=== PATIENT | female | born 1990 | race Hispanic/Latino ===

== ENCOUNTER 2019-10-27 23:32 | Day surgery (SDC) | payer SELFPAY ==
[2019-10-28] MEDS ORDERED: hydrALAZINE 20 MG/ML VIAL SLOW IVP PRN (00:41)
--- NOTE | 2019-10-28 00:47 | PDOC.FPROB ---
FMR OB H&P: HPI - History of Present Illness Chief Complaint: Decreased movement History of Present Illness: Pt is a 29 yo F at 37.4 wks by LMP c/w 8.5 wk US who presents for decreased movement. She says she has been feeling baby less since Wednesday of this week. She feels baby move in the mornings and evening, but little throughout the day. She says baby did not move at all tonight and so she got concerned and came in to be checked. She denies any LOF, contractions, bleeding , or vaginal discharge. She was seen for an US where the they found her to have a normal NST. She was told to come to the hospital if she felt like she had continued decrease in movement. Primary Care Physician: SHADNRA Ann FMR OB H&P: Current - Care : 3 Para: 2001 Gestational age: 37.4 Due date: 11/14/2019 Dating Criteria: LMP c/w with 8.5 wk US Course/Complications: Gestational Diabetes - OB Labs Blood type: O RH: positive Antibody Screen: negative HIV: negative RPR: negative HepBsAg: negative Rubella: immune Quad screen: negative Gonorrhea: negative Chlamydia: negative 3 hour GTT: 111, 211, 170 A1c: 5.3 H&H: 11.9/34.5 Platelets: 223 FMR OB H&P: History - Past Medical History PMH: Hypothyroidism - OB History OB History: Gestational Diabetes treated with metformin. Hx of gestational hypertension in previous . 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 - Family History Family History: Cousin with autism FMR OB H&P: Medications - Current Home Medications: Medication Instructions Recorded Confirmed Type Vitamin 1 tablet PO DAILY 01/07/15 01/27/15 History Levothyroxine Sodium [Synthroid] 1 tab PO DAILY 10/28/19 10/28/19 History metFORMIN [Glucophage] 2 tab PO DAILY 10/28/19 10/28/19 History Allergies/Adverse Reactions: Allergies Allergy/AdvReac Type Severity Reaction Status Date / Time No Known Allergies Allergy Verified 01/07/15 22:32 FMR OB H&P: ROS - Review of Systems General: denies: fever/chills Eyes: denies: vision changes ENT: denies: nasal congestion, rhinorrhea, sore throat Cardiovascular: denies: chest pain, palpitation, edema Respiratory: denies: cough, congestion, shortness of breath Gastrointestinal: reports: nausea. denies: abdominal pain, cramping, vomiting, diarrhea Genitourinary (Female): denies: dysuria, vaginal discharge, vaginal bleeding, contractions Musculoskeletal: denies: pain, tenderness, swelling Neurologic: reports: other (Dizziness that resolved spontaneously). denies: numbness, weakness Integumentary: denies: itching, rash, lesions Hematologic/Lymphatic: denies: prolonged or excessive bleeding, enlarged lymph nodes FMR OB H&P: Vital Signs - Maternal Vital signs: BP: 119/64, HR: 80, O2: 99% on RA, T: - Heart Tones Variability: moderate Acceleration: present Deceleration: absent Category: category 1 FMR OB H&P: Physical Exam - Physical Exam General: NAD HEENT: normocephalic and atraumatic, PERRLA, EOMI, MMM, conjunctiva clear, no scleral icterus, normal nasal mucosa, oropharynx clear Neck: supple, trachea midline, no LAD Heart: RRR, normal S1/S2, no murmurs/rubs/gallops, pulses present, no edema General: CTAB, no respiratory distress, good air movement, no rales/rhonchi, no wheezing, no retractions Abdomen: soft, gravid, non-tender, bowel sound present Musculoskeletal: normal gait and station, pulses present, FROM in all four extremities Neurological: cranial nerves II through XII intact, no focal deficit Skin: no rash, good tugor Lymphatic: no unusual bruising or bleeding, no purpura, no petechia, no LAD Psychiatric: normal mood and affect FMR OB H&P: A/P - Problem List (1) Term Status: Acute Code(s): Z34.90 - ENCNTR FOR SUPRVSN OF NORMAL , UNSP, UNSP TRIMESTER (2) Decreased movement Status: Acute Code(s): O36.8190 - DECREASED MOVEMENTS, UNSP TRIMESTER, UNSP Disposition: Pt is a 29 yo F at 37.4 wks by LMP c/w 8.5 wk US who presents for decreased movement. 1. Decreased Movement Pt was evaluated on NST and was found to be reactive * Discussed with patient return precautions and if she has concerns to return to the hospital for evaluation. 2. Term 37.4 wks * Hx of gestational HTN with past and took medication for a year after * BP well controlled here * Hypothyroidism on levothyroxine that is well controlled throughout * A2GDM currently on metformin * GBS collected but not in records Dispo: Discharged home. Discussed return precautions. Recommend following up at [facility] at scheduled visit on of next week. Discussion: Date/Time: 10/28/19 0043 This H&P was discussed with [] and [] who agree with the above documentation and plan. Addendum - Attending - Attending Attestation Date/Time: 10/28/19 3889 I personally evaluated the patient and discussed the management with Dr. Castaneda. I agree with the History, Examination, Assessment and Plan documented above.
== END 2019-10-28 00:40 | disposition home or self-care (01) ==
LOC: L&D/OP 23:32
PROVIDERS: ATTEND Family Medicine
DX: O36.8130 Decreased fetal movements, third trimester, not applicable or unspecified (principal); O24.415 Gestational diabetes mellitus in pregnancy, controlled by oral hypoglycemic drugs; O99.283 Endocrine, nutritional and metabolic diseases complicating pregnancy, third trimester; E03.9 Hypothyroidism, unspecified; Z3A.37 37 weeks gestation of pregnancy; Z79.899 Other long term (current) drug therapy

== ENCOUNTER 2019-11-08 18:00 | Inpatient (IN) | payer MEDICAID, OTHER, SELFPAY ==
[2019-11-08] MEDS: Lactated Ringer's 1,000 ML IV SCH (19:30)
[2019-11-08] MEDS ORDERED: Misoprostol 200 MCG TAB PR PRN (19:36)
[2019-11-08] MEDS ORDERED: HYDROcodone/Acetaminophen 5/325 mg Tablet PO PRN ×2 (19:36)
[2019-11-08] MEDS ORDERED: Methylergonovine 0.2 MG/ML VIAL IM PRN (19:36)
[2019-11-08] MEDS ORDERED: Promethazine HCl 25 MG/ML VIAL IM PRN (19:36)
[2019-11-08] MEDS ORDERED: Ibuprofen 800 MG TAB PO PRN (19:36)
[2019-11-08] MEDS ORDERED: Acetaminophen 500 MG TAB PO PRN (19:36)
[2019-11-08] MEDS ORDERED: hydrALAZINE 20 MG/ML VIAL SLOW IVP PRN (19:36)
[2019-11-08] MEDS ORDERED: NS / Oxytocin 40 units/1000ml 1,000 ML IV PRN (19:36)
[2019-11-08] MEDS ORDERED: Carboprost 250 MCG/ML AMP IM PRN (19:36)
[2019-11-08] MEDS ORDERED: Lidocaine 1% (PF) 30 ML VIAL SC PRN (19:36)
[2019-11-08] MEDS ORDERED: Ondansetron PF 4 MG/2 ML Vial IVP PRN (19:36)
[2019-11-08 20:28] VITALS: BMI 46.1
--- NOTE | 2019-11-08 20:32 | PDOC.FPROB ---
FMR OB H&P: HPI - History of Present Illness Chief Complaint: IOL Indentification: History of Present Illness: Patient is a 29 y/o female at 39.1W EGA by LMP, c/w 9.2W US, who presents to L&D for induction of labor. Patient reports no problems at this time other that some mild nausea and back pain, and states that her has only been complicated by 1 episode of UTI and 1 episode of vaginal candidiasis. Records were reviewed from [facility], which demonstrated that patient has had adequate care and appropriate supervision of Hypothyroidism and A2GDM. Patient states that she checks her POC Glucose regularly at home, and upon review her POC Glucose readings were found to range from the high 90s to the low 110s. Patient denies any CTX, loss of fluid, vaginal bleeding, loss of movements , fevers, chills, headaches, visual disturbances, auditory disturbances, vomiting, CP, peripheral edema, SOB, cough, RUQ pain, dysuria, hematuria, bloody stools, arthralgias/arthritis, or recent falls/trauma. Patient denies sick contacts and recent travel. Patient's was present in the room at the time of evaluation. Primary Care Physician: [facility] - Dr. Kaitlin Ann / Dr. 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 - Surgical History Sx History: None. - Social History Social History: Denies x3. Patient is unemployed at this time. - Family History Family History: Non-contributory. FMR OB H&P: Medications - Current Home Medications: Medication Instructions Recorded Confirmed Type Vitamin 1 tablet PO DAILY 01/07/15 11/08/19 History Levothyroxine Sodium [Synthroid] 1 tab PO DAILY 10/28/19 11/08/19 History metFORMIN [Glucophage] 2 tab PO DAILY 10/28/19 11/08/19 History Allergies/Adverse Reactions: Allergies Allergy/AdvReac Type Severity Reaction Status Date / Time No Known Allergies Allergy Verified 01/07/15 22:32 FMR OB H&P: ROS - Review of Systems General: reports: fatigue. denies: fever/chills, recent trauma Eyes: denies: vision changes ENT: denies: sore throat Cardiovascular: denies: chest pain, edema Respiratory: denies: cough, shortness of breath Gastrointestinal: reports: nausea. denies: abdominal pain, vomiting, diarrhea, constipation, bright red blood, dark black tarry stools Genitourinary (Female): reports: vaginal discharge. denies: dysuria, hematuria , vaginal pain, vaginal bleeding, contractions Musculoskeletal: denies: arthritis/arthralgias Neurologic: denies: headache FMR OB H&P: Vital Signs - Maternal Vital signs: HR (85), BP (126/74), T(98.5), 02Sat(98% - Room Air) - Heart Tones Baseline: 140 Variability: moderate Acceleration: present Deceleration: variable (x1) FMR OB H&P: Physical Exam - Physical Exam General: NAD, awake, alert and oriented HEENT: normocephalic and atraumatic, PERRLA, EOMI, conjunctiva clear, no scleral icterus, grossly normal vision, grossly normal hearing Neck: supple, FROM, trachea midline, no LAD Chest: non-tender to palpation, no lesions Breast: symmetric Heart: RRR, normal S1/S2, no murmurs/rubs/gallops, pulses present, no edema General: CTAB, no respiratory distress, good air movement, no rales/rhonchi, no wheezing, no retractions Abdomen: fundus(cm), non-tender Musculoskeletal: pulses present, FROM in all four extremities, no misalignment/ asymmetry, no atrophy Neurological: sensation to pain,touch and proprioception grossly normal Skin: no rash, good tugor, no jaundice Lymphatic: no unusual bruising or bleeding, no purpura, no petechia, no LAD Psychiatric: intact recent and remote memory, good judgement and insight, normal mood and affect - Pelvic Exam Vulva: no masses, no lesions Cervix: no masses, no blood SVE: 2.5 / 50 / High Rosas score: 5 Membranes: Intact Presentation: Vertex FMR OB H&P: A/P - Problem List (1) Gestational diabetes Current Visit: Yes Status: Acute Code(s): O24.419 - GESTATIONAL DIABETES MELLITUS IN , UNSP CONTROL (2) Hypothyroidism Current Visit: Yes Status: Acute Code(s): E03.9 - HYPOTHYROIDISM, UNSPECIFIED (3) Obesity Current Visit: Yes Status: Acute Code(s): E66.9 - OBESITY, UNSPECIFIED (4) Term Current Visit: No Status: Acute Code(s): Z34.90 - ENCNTR FOR SUPRVSN OF NORMAL , UNSP, UNSP TRIMESTER Disposition: Patient is a 29 y/o female at 39.1W EGA by LMP, c/w 1st Trimester US, who presents to L&D for IOL. 1. SIUP -Patient does not endorse loss of fluids, vaginal bleeding, CTX or loss of movement at this time - complicated by 1 UTI and 1 episodes of Vaginal Candiasis - no complaints at this time -GBS: Negative -HIV / RPR / GC / CT: Negative -Maternal VSS w/ unremarkable physical exam -FHTs in the 140s w/ Acels present, 1 Variable Decel noted during intake - will continue to monitor -SVE(2014): 2.5 / 50 / High -Rosas Score: 5 -Will plan for Cytotec Induction w/ Q4H SVEs -LR @ 125 ml/hr -No epidural desired - ensure adequate pain control 2. A2GDM -HgA1c: 5.3 -POC Glucose appears to be WNL w/ home readings -Will hold Metformin 500 mg PO BID at this time -Q2H Accuchecks -Hypoglycemia Protocol 3. Hypothyroidism -Adequate monitoring throughout -TSH: 4.0 > 2.3 > 1.72 > 3.18 -Patient does not endorse symptoms consistent w/ Hypo- / Hyperthyroidism -Will continue home Levothyroxine regimen 4. Obesity -Most recent US (34.3W) reviewed prior to admission -HADLOCK: 78% -EFW: 2456 g -Low concern for Macrosomia at this time PCP: [facility] - Dr. Ann / Dr. Moody Dispo: Patient is currently stable and admitted to L&D for IOL at 39.1W EGA. Plan for Cytotec Induction w/ Q4H SVEs. Monitor Q2H Accuchecks and ensure adequate pain control. Expected LOS > 48H. Discussion: Date/Time: 11/08/192027 This H&P was discussed with [] and [] who agree with the above documentation and plan. Addendum - Attending - Attending Attestation Date/Time: 11/09/191843 I personally evaluated the patient and discussed the management with Dr. Pugh at time of admission. I agree with the History, Examination, Assessment and Plan documented above with any addition or exceptions noted below.
[2019-11-08] MEDS ORDERED: Misoprostol 100 MCG TAB VAG PRN (21:00)
[2019-11-08 21:29] LABS: Hemoglobin 13.7 g/dL (12.0-16.0); Mean Corpuscular HGB CONC 34.7 g/dL (32.0-36.0); Mean Corpuscular Hemoglobin 32.8 pg (27.0-31.0); Mean Corpuscular Volume 94.6 fL (78.0-98.0); Mean Platelet Volume 9.1 fL (7.4-10.4); Platelet Count 236 thou/uL (130-400); RBC Distribution Width 12.7 % (11.5-14.5); Red Blood Cell (RBC) Count 4.18 mill/uL (4.20-5.40); White Blood Cell (WBC) Count 8.9 thou/uL (4.8-10.8)
[2019-11-08 22:06] LABS: Syphilis Antibody Nonreactive (Nonreactive)
[2019-11-08 22:26] LABS: HBSAg Index 0.14 S/CO (0-0.99); Hep B Surf Ag Non-Reactive S/CO (NonReactive)
[2019-11-09] MEDS: Lactated Ringer's 1,000 ML IV SCH ×2 (01:06→08:45)
--- NOTE | 2019-11-09 04:00 | PDOC.OBLPN ---
FMR OB Labor PN: Subj - Interval History Hospital Day: 1 Chief Complaint: IOL Indentification: @ 39.2W EGA by LMP, c/w 1st Trimester US Interval History: None FMR OB Labor PN: Obj - Maternal Vital signs: BP: [129/63] HR: [63] RR: [] Tmax: [] Pox: []% on [] Wt: [] FMR OB Labor PN: Exam - Physical Exam General: NAD, awake, alert and oriented HEENT: normocephalic and atraumatic, EOMI, MMM, conjunctiva clear, no scleral icterus, grossly normal vision, grossly normal hearing Neck: supple, FROM Breast: symmetric Abdomen: gravid, non-tender Musculoskeletal: FROM in all four extremities, no misalignment/asymmetry, no atrophy Neurological: sensation to pain,touch and proprioception grossly normal Skin: no rash, no jaundice Lymphatic: no unusual bruising or bleeding, no purpura, no petechia Psychiatric: intact recent and remote memory, good judgement and insight, normal mood and affect - Pelvic Exam SVE: 3/50/-3 Rosas score: 5 Membranes: Intact Presentation: Vertex FMR OB Labor PN: Data - Labs Lab results: Laboratory Results - last 24 hr 11/08/19 11/08/19 11/08/19 20:54 21:09 21:09 WBC RBC Hgb Hct MCV MCH MCHC RDW Plt Count MPV POC Glucose 96 Syphilis IgG/IgM Ab Nonreactive Hep Bs Antigen Non-Reactive Blood Type Antibody Screen 11/08/19 11/08/19 11/09/19 21:09 21:09 00:17 WBC 8.9 RBC 4.18 L Hgb 13.7 Hct 39.6 MCV 94.6 MCH 32.8 H MCHC 34.7 RDW 12.7 Plt Count 236 MPV 9.1 POC Glucose 84 Syphilis IgG/IgM Ab Hep Bs Antigen Blood Type O POSITIVE Antibody Screen NEGATIVE FMR OB Labor PN: A/P - Problem List (1) Gestational diabetes Current Visit: Yes Status: Acute Code(s): O24.419 - GESTATIONAL DIABETES MELLITUS IN , UNSP CONTROL (2) Hypothyroidism Current Visit: Yes Status: Acute Code(s): E03.9 - HYPOTHYROIDISM, UNSPECIFIED (3) Obesity Current Visit: Yes Status: Acute Code(s): E66.9 - OBESITY, UNSPECIFIED (4) Term Current Visit: No Status: Acute Code(s): Z34.90 - ENCNTR FOR SUPRVSN OF NORMAL , UNSP, UNSP TRIMESTER Disposition: Patient is a 29 y/o female at 39.1W EGA by LMP, c/w 1st Trimester US, who presents to L&D for IOL. 0115 SVE 1. SIUP -Patient does not endorse loss of fluids, vaginal bleeding, CTX or loss of movement at this time - complicated by 1 UTI and 1 episodes of Vaginal Candiasis - no complaints at this time -GBS: Negative -HIV / RPR / GC / CT: Negative -Maternal VSS w/ unremarkable physical exam -FHTs in the 140s w/ Acels present, 1 Variable Decel noted during intake - will continue to monitor -SVE(2014): 2.5 / 50 / High -Cytotec #1 placed at 2114 -SVE(114): 3 / 50 / -3 -Rosas Score: 5 -Will repeat SVE in 2H to assess for Cytotec # Placement -LR @ 125 ml/hr -No epidural desired - ensure adequate pain control 2. A2GDM -HgA1c: 5.3 -POC Glucose appears to be WNL w/ home readings -Will hold Metformin 500 mg PO BID at this time -Q2H Accuchecks - all values WNL since admission -Hypoglycemia Protocol 3. Hypothyroidism -Adequate monitoring throughout -TSH: 4.0 > 2.3 > 1.72 > 3.18 -Patient does not endorse symptoms consistent w/ Hypo- / Hyperthyroidism -Will continue home Levothyroxine regimen 4. Obesity -Most recent US (34.3W) reviewed prior to admission -HADLOCK: 78% -EFW: 2456 g -Low concern for Macrosomia at this time PCP: [facility] - Dr. Ann / Dr. Moody Dispo: Patient is currently stable and admitted to L&D for IOL at 39.1W EGA. Continue with Cytotec IOL and plan for additional SVE in 2H. Monitor Q2H Accuchecks and ensure adequate pain control as per above. Expected LOS > 48H. Discussion: Date/Time: 11/09/19 3534 This H&P was discussed with [] and [] who agree with the above documentation and plan.
[2019-11-09] MEDS ORDERED: Butorphanol Tartrate 1 MG/ML VIAL SLOW IVP PRN (04:24)
--- NOTE | 2019-11-09 04:37 | PDOC.OBLPN ---
FMR OB Labor PN: Subj - Interval History Hospital Day: 1 Chief Complaint: IOL Indentification: @ 39.2W EGA by LMP, c/w 1st Trimester US Interval History: Increasingly painful CTX FMR OB Labor PN: Obj - Maternal Vital signs: BP: [123/72] HR: [63] RR: [] Tmax: [] Pox: []% on [] Wt: [] FMR OB Labor PN: Exam - Physical Exam General: NAD, awake, alert and oriented, other (Increasingly painful CTX) HEENT: normocephalic and atraumatic, EOMI, MMM, conjunctiva clear, no scleral icterus, grossly normal vision, grossly normal hearing Neck: supple, FROM Breast: symmetric Heart: no edema General: no respiratory distress Abdomen: gravid, non-tender Musculoskeletal: FROM in all four extremities, no misalignment/asymmetry, no atrophy Neurological: sensation to pain,touch and proprioception grossly normal Skin: no rash, no jaundice Lymphatic: no unusual bruising or bleeding, no purpura, no petechia Psychiatric: intact recent and remote memory, good judgement and insight, normal mood and affect - Pelvic Exam Cervix: no masses, no blood SVE: 4/50/-2 Rosas score: 7 Membranes: Intact Presentation: Vertex FMR OB Labor PN: Data - Labs Lab results: Laboratory Results - last 24 hr 11/08/19 11/08/19 11/08/19 20:54 21:09 21:09 WBC RBC Hgb Hct MCV MCH MCHC RDW Plt Count MPV POC Glucose 96 Syphilis IgG/IgM Ab Nonreactive Hep Bs Antigen Non-Reactive Blood Type Antibody Screen 11/08/19 11/08/19 11/09/19 21:09 21:09 00:17 WBC 8.9 RBC 4.18 L Hgb 13.7 Hct 39.6 MCV 94.6 MCH 32.8 H MCHC 34.7 RDW 12.7 Plt Count 236 MPV 9.1 POC Glucose 84 Syphilis IgG/IgM Ab Hep Bs Antigen Blood Type O POSITIVE Antibody Screen NEGATIVE 11/09/19 04:11 WBC RBC Hgb Hct MCV MCH MCHC RDW Plt Count MPV POC Glucose 81 Syphilis IgG/IgM Ab Hep Bs Antigen Blood Type Antibody Screen FMR OB Labor PN: A/P - Problem List (1) Gestational diabetes Current Visit: Yes Status: Acute Code(s): O24.419 - GESTATIONAL DIABETES MELLITUS IN , UNSP CONTROL (2) Hypothyroidism Current Visit: Yes Status: Acute Code(s): E03.9 - HYPOTHYROIDISM, UNSPECIFIED (3) Obesity Current Visit: Yes Status: Acute Code(s): E66.9 - OBESITY, UNSPECIFIED (4) Term Current Visit: No Status: Acute Code(s): Z34.90 - ENCNTR FOR SUPRVSN OF NORMAL , UNSP, UNSP TRIMESTER Disposition: Patient is a 29 y/o female at 39.2W EGA by LMP, c/w 1st Trimester US, who presents to L&D for IOL. 0345 SVE 1. SIUP -Patient does not endorse loss of fluids, vaginal bleeding, CTX or loss of movement at this time - complicated by 1 UTI and 1 episodes of Vaginal Candiasis - no complaints at this time -GBS: Negative -HIV / RPR / GC / CT: Negative -Maternal VSS w/ unremarkable physical exam -FHTs in the 130s w/ Acels present, 1 Variable Decel noted during intake - will continue to monitor -SVE(2014): 2.5 / 50 / High -Cytotec #1 placed at 2115 -SVE(0115): 3 / 50 / -3 -SVE(034): 4/ 50 / -2 -Rosas Score: 7 -Will repeat SVE in 4H to assess for Cytotec #2 Placement -LR @ 125 ml/hr -No epidural desired - will administer Stadol 2 mg IVP x1 at this time 2. A2GDM -HgA1c: 5.3 -POC Glucose appears to be WNL w/ home readings -Will hold Metformin 500 mg PO BID at this time -Q2H Accuchecks - all values WNL since admission -Hypoglycemia Protocol 3. Hypothyroidism -Adequate monitoring throughout -TSH: 4.0 > 2.3 > 1.72 > 3.18 -Patient does not endorse symptoms consistent w/ Hypo- / Hyperthyroidism -Will continue home Levothyroxine regimen 4. Obesity -Most recent US (34.3W) reviewed prior to admission -HADLOCK: 78% -EFW: 2456 g -Low concern for Macrosomia at this time PCP: [facility] - Dr. Ann / Dr. Moody Dispo: Patient is currently stable and admitted to L&D for IOL at 39.1W EGA. Continue with Cytotec IOL and plan for next SVE in 4H. Monitor Q2H Accuchecks and ensure adequate pain control as per above. Expected LOS > 48H. Discussion: Date/Time: 11/09/19 0436 This H&P was discussed with [] and [] who agree with the above documentation and plan.
[2019-11-09] MEDS ORDERED: Lidocaine 1% (PF) 30 ML VIAL ONE (07:20)
--- NOTE | 2019-11-09 09:57 | PDOC.OPDEL ---
OB Operative/Delivery Note - Additional Findings/Plan Compilations/Other Findings: Vaginal Delivery Dictation Guideline Delivering Physician: Dr. Kaitlin Ann, Dr. Anel Burton Attending: Dr. Cullen Mendieta Procedure: Spontaneous Vaginal Delivery Anesthesia: epidural, Local for Repair EBL: 175ml ml Pre-op Diagnosis: 1. Medical induction of term intrauterine for A2GDM 2. A2GDM on metformin 3. Hx of Hypothyroidism Post-op Diagnosis: 1. Term intrauterine , delivered 2. same as above Indications: A 29y/o female presents to L&D for induction due to A2GDM Delivery Note: This is 29yo F @ 39.2wks who delivered a viable M infant at 0859. Following an uneventful intrapartum course, that included q2h accuchecks all wnl, and AROM with scalp electrode placement ~30min prior to delivery, a vigorous male was delivered over an intact perineum in the occipitoanterior position. Anterior Shoulder and then remainder of the body delivered. Nuchal cord x 1. The head was held down and mouth and nares were bulb suctioned. Cord clamped and cut and cord blood collected. Placenta delivered intact in the Sy presentation with a 3 vessel cord noted. Fundal massage was performed and the fundus was firm. The cervix and vagina were inspected and a 1st degree laceration noted and repaired with 3-0 vicryl in the usual fashion with good approximation and hemostasis after 10ml lidocaine was injected at site. Infant went to nursery in good condition for routine care. Apgars were 8/9 at 1 & 5 minutes, respectively. Patient tolerated delivery well and went to after routine recovery/care. Addendum - Attending - Attending Attestation Date/Time: 11/09/19 1027 I was present for the delivery.
[2019-11-09] MEDS: NS / Oxytocin 40 units/1000ml 1,000 ML ONE (10:18)
[2019-11-09] MEDS ORDERED: NS / Oxytocin 40 units/1000ml 1,000 ML IV SCH (11:28)
[2019-11-09] MEDS ORDERED: Bisacodyl 10 MG SUPP PR PRN (11:28)
[2019-11-09] MEDS ORDERED: Lanolin Ointment 7 GM TUBE TOP PRN (11:28)
[2019-11-09] MEDS ORDERED: Milk Of Magnesia 30 ML UDCUP PO PRN (11:28)
[2019-11-09] MEDS ORDERED: hydrALAZINE 20 MG/ML VIAL SLOW IVP PRN (11:28)
[2019-11-09] MEDS: Ibuprofen 800 MG TAB PO SCH ×2 (13:47→21:15)
[2019-11-09] MEDS: Ferrous Sulfate 325 MG TAB PO SCH (17:05)
[2019-11-09] MEDS: Docusate Calcium (SURFAK) 240 MG CAP PO SCH (21:15)
[2019-11-10] MEDS: Ibuprofen 800 MG TAB PO SCH (05:05)
[2019-11-10 05:39] LABS: Hemoglobin 12.6 g/dL (12.0-16.0); Mean Corpuscular HGB CONC 33.7 g/dL (32.0-36.0); Mean Corpuscular Hemoglobin 32.3 pg (27.0-31.0); Mean Corpuscular Volume 95.9 fL (78.0-98.0); Mean Platelet Volume 8.3 fL (7.4-10.4); Platelet Count 198 thou/uL (130-400); RBC Distribution Width 12.6 % (11.5-14.5); Red Blood Cell (RBC) Count 3.89 mill/uL (4.20-5.40); White Blood Cell (WBC) Count 9.3 thou/uL (4.8-10.8)
[2019-11-10] MEDS ORDERED: Levothyroxine Sodium 50 MCG TAB PO SCH (06:00)
--- NOTE | 2019-11-10 06:06 | PDOC.OBPPN ---
FMR OB PN: Subj - Interval History Hospital Day: 2 Day: 1 Chief Complaint: none Indentification: 29F >3 delivered ARNOL Oconnell via @ 39.2wga on 11/08 @ 0859 Interval History: VSS, tolerating PO, ambulating, voiding/passing flatus FMR OB PN: Obj - Maternal Vital signs: BP: [106-136/64-74] HR: [62-74] RR: [16] Tmax: [98.6F] Pox: [99]% on [RA] Wt: [129.727kg] - Urine output I&O: 11/08/19 11/09/19 11/10/19 06:59 06:59 06:59 Output Total 250 Balance -250 - Lochia Lochia: mild - Pain Management Intervention: oral medication FMR OB PN: Exam - Physical Exam General: NAD, awake, alert and oriented HEENT: normocephalic and atraumatic, MMM Neck: supple, FROM Chest: non-tender to palpation, no lesions Heart: RRR, normal S1/S2 General: CTAB, no respiratory distress Abdomen: soft, bowel sound present, no masses Musculoskeletal: pulses present, FROM in all four extremities Neurological: no tremor, no focal deficit Skin: no rash, good tugor : no edema, appropriately tender Lymphatic: no unusual bruising or bleeding, no purpura Psychiatric: intact recent and remote memory, good judgement and insight FMR OB PN: Data - Labs Lab results: Laboratory Results - last 24 hr 11/09/19 11/10/19 07:22 05:00 WBC 9.3 RBC 3.89 L Hgb 12.6 Hct 37.3 MCV 95.9 MCH 32.3 H MCHC 33.7 RDW 12.6 Plt Count 198 MPV 8.3 POC Glucose 82 FMR OB PN: A/P - Problem List (1) care and examination Current Visit: Yes Status: Acute Code(s): Z39.2 - ENCOUNTER FOR ROUTINE FOLLOW-UP (2) Gestational diabetes Current Visit: Yes Status: Resolved Code(s): O24.419 - GESTATIONAL DIABETES MELLITUS IN , UNSP CONTROL (3) Hypothyroidism Current Visit: Yes Status: Chronic Code(s): E03.9 - HYPOTHYROIDISM, UNSPECIFIED Disposition: Patient is a 29F @ 39.2wga that delivered a MERCEDESA Kourtney via on 11/08 @ 0859 # Day 1 -mild lochia -passing flatus, has had a BM since delivery -reporting mild vaginal pain, abdomen slightly ttp -tolerating PO -ambulating -plans to f/u at [facility] @ 2 and 6wks -eager to go home to her other children #Hx of A2GDM -hold metformin -stop accuchecks -encourage patient to have glucose testing at 6wk pp visit Dispo: post-op day 1 status post @ 0859 on 11/08. Possible d/c today pending baby's bili Discussion: Date/Time: 11/10/19 0604 Signature: Anel Burton MD, PGY-1 Addendum - Attending - Attending Attestation Date/Time: 11/10/19 1006 I personally evaluated the patient and discussed the management with Dr. Burton. I agree with the History, Examination, Assessment and Plan documented above with any addition or exceptions noted below.
[2019-11-10 08:36] VITALS: BP 112/66; TEMP 97.9
[2019-11-10] MEDS ORDERED: Adacel (T-DAP) 0.5 ML SYRINGE IM ONE (09:00)
[2019-11-10] MEDS ORDERED: Prenatal Vitamin 1 TAB PO SCH (09:00)
[2019-11-10] MEDS: Ferrous Sulfate 325 MG TAB PO SCH (09:02)
[2019-11-10] MEDS: Docusate Calcium (SURFAK) 240 MG CAP PO SCH (09:02)
== END 2019-11-10 13:27 | disposition home or self-care (01) | DRG 807 ==
LOC: L&D 19:16 → 3SW 11-09 12:00
PROVIDERS: ADMIT Family Medicine; ATTEND Family Medicine
PROC: 3E0P7VZ Introduction of Hormone into Female Reproductive, Via Natural or Artificial Opening (ICD-10-PCS; 2019-11-08)
PROC: 10E0XZZ Delivery of Products of Conception, External Approach (ICD-10-PCS; principal; 2019-11-09)
PROC: 0HQ9XZZ Repair Perineum Skin, External Approach (ICD-10-PCS; 2019-11-09)
PROC: 10907ZC Drainage of Amniotic Fluid, Therapeutic from Products of Conception, Via Natural or Artificial Opening (ICD-10-PCS; 2019-11-09)
DX: O24.425 Gestational diabetes mellitus in childbirth, controlled by oral hypoglycemic drugs (principal); Z37.0 Single live birth; Z3A.39 39 weeks gestation of pregnancy; O99.284 Endocrine, nutritional and metabolic diseases complicating childbirth; E03.9 Hypothyroidism, unspecified; O99.214 Obesity complicating childbirth; E66.9 Obesity, unspecified; O76 Abnormality in fetal heart rate and rhythm complicating labor and delivery; O69.81X0 Labor and delivery complicated by cord around neck, without compression, not applicable or unspecified; O70.0 First degree perineal laceration during delivery; Z86.19 Personal history of other infectious and parasitic diseases; Z79.899 Other long term (current) drug therapy; Z79.890 Hormone replacement therapy; Z87.440 Personal history of urinary (tract) infections
CPT/HCPCS: 36415; 36416; 85027; 86780; 86850; 86900; 86901; 87340; J2001

== ENCOUNTER 2022-08-10 19:54 | Emergency (ER) | payer OTHER, SELFPAY ==
[2022-08-10 21:04] LABS: #Basophils 0.1 thou/uL (0.0-0.2); #Eosinphils 0.1 thou/uL (0.0-0.7); #Lymphocytes 2.5 thou/uL (1.20-3.40); #Monocytes 0.6 thou/uL (0.11-0.59); #Neutrophils 6.6 thou/uL (1.40-6.50); %Basophils 0.7 % (0.0-1.0); %Eosinophils 1.1 % (0.0-10.0); %Lymphocytes 25.5 % (21.0-51.0); %Monocytes 5.6 % (0.0-10.0); %Neutrophils 67.1 % (42.0-75.0); Hemoglobin 14.4 g/dL (12.0-16.0); Mean Corpuscular Hemoglobin 31.9 pg (27.0-31.0); Mean Corpuscular Volume 91.2 fl (78.0-98.0); Mean Platelet Volume 7.8 fL (7.4-10.4); Platelet Count 271 10x3/uL (130-400); RBC Distribution Width 11.2 % (11.5-14.5); Red Blood Cell (RBC) Count 4.51 mill/uL (4.20-5.40); White Blood Cell (WBC) Count 9.8 10x3/uL (4.8-10.8)
[2022-08-10] MEDS ORDERED: Lidocaine Viscous Sol 2% 15 ml UD Cup ONE (21:14)
[2022-08-10] MEDS ORDERED: Mag-Al 1200 mg/1200 mg/30 ML UDCUP ONE (21:14)
[2022-08-10 21:26] LABS: ALT (SGPT) 18 U/L (8-55); AST (SGOT) 21 U/L (5-34); Albumin 3.8 g/dL (3.5-5.0); Alkaline Phosphatase 105 U/L (40-110); Anion Gap 13 mmol/L (10-20); BUN (Urea Nitrogen) 6 mg/dL (7.0-18.7); Bilirubin, Total 0.2 mg/dL (0.2-1.2); Calc. Creatinine Clearance 0 mL/min (70-130); Calcium 9.1 mg/dL (7.8-10.44); Carbon Dioxide 20 mmol/L (22-29); Chloride 104 mmol/L (98-107); Estimated GFR 109; Globulin 4.4 g/dL (2.4-3.5); Glucose 236 mg/dL (70-105); Protein, Total 8.2 g/dL (6.0-8.3); Sodium 133 mmol/L (136-145)
[2022-08-10 21:45] LABS: BHCG - Serum Negative (NEGATIVE); Pregs Control Background? CLEAR/WHITE (CLR/WHITE); Pregs Control Bar Appear? YES (CONTROL BAR)
[2022-08-10] MEDS ORDERED: Ondansetron ODT 4 MG TAB ONE (23:29)
== END 2022-08-10 23:59 | disposition home or self-care (01) ==
LOC: ERS 19:54
DX: R10.13 Epigastric pain (principal); R11.2 Nausea with vomiting, unspecified; I10 Essential (primary) hypertension
CPT/HCPCS: 36415; 71045; 80053; 83690; 84484; 84703; 85025; 93005; Q0162